=== PATIENT | female | born 1980 | race Caucasian/White ===

== ENCOUNTER 2024-09-22 19:14 | Emergency (ER) | payer BC, SELFPAY ==
[2024-09-22 19:15] VITALS: BP 142/80; PULSE 58; RESP 11; TEMP 36.1; O2SAT 100; BMI 18.4
[2024-09-22 22:08] VITALS: BP 180/83; PULSE 63; RESP 16; O2SAT 100
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
[2024-09-22 23:01] VITALS: BP 174/92; PULSE 55; RESP 18; O2SAT 100
[2024-09-22 23:51] VITALS: BP 156/78; PULSE 62; RESP 16; O2SAT 98
== END 2024-09-23 00:13 | disposition home or self-care (01) ==
PROVIDERS: Emergency Provider Emergency Medicine; Visit Provider Emergency Medicine
DX: M79.672 Pain in left foot (principal); V49.60XA Unspecified car occupant injured in collision with unspecified motor vehicles in traffic accident, initial encounter; Z79.890 Hormone replacement therapy; Z90.710 Acquired absence of both cervix and uterus
CPT/HCPCS: 73630; 99282